=== PATIENT | male | born 1975 | race Caucasian/White ===

== ENCOUNTER 2019-05-12 09:51 | Emergency (ER) | payer OTHER ==
[~2019-05-12] VITALS: Ht 167.6 cm; Wt 72.6 kg
[~2019-05-12 09:51] MED LIST: CLONAZEPAM0.5 MG; NORVASC5 MG; PEPCID20 MG; PREVACID30 MG; [UNRECOGNIZED DRUG - OTHER]
[2019-05-12] MEDS ORDERED: TOPROL XL50 M1 (09:58)
== END 2019-05-12 14:50 | disposition home or self-care (01) ==
LOC: ER 09:51
DX: N20.0 Calculus of kidney (principal)